=== PATIENT | female | born 1990 | race Caucasian/White ===

== ENCOUNTER 2018-05-15 09:20 | Emergency (ER) | payer OTHER ==
[~2018-05-15] VITALS: Ht 152.4 cm; Wt 54.5 kg
[~2018-05-15 09:20] MED LIST: NO HOME MEDICATIONS; ZOFRAN ODT4 MG PO; ZOFRAN4 M1 PO
[2018-05-15] MEDS ORDERED: GOOD NEIGHBOR200 M3 PO (10:33)
[2018-05-15] MEDS ORDERED: SEPTRA DS 8001 TAB PO (10:33)
[2018-05-15 11:10] VITALS: BP 106/62
== END 2018-05-15 11:10 | disposition home or self-care (01) ==
LOC: ED 09:20
DX: L02.416 Cutaneous abscess of left lower limb (principal); L02.415 Cutaneous abscess of right lower limb; F15.10 Other stimulant abuse, uncomplicated